=== PATIENT | female | born 1955 | race Caucasian/White ===

== ENCOUNTER 2016-07-23 07:28 | Emergency (ER) | payer OTHER ==
[2016-07-23 07:36] VITALS: BP 129/72; PULSE 103; TEMP 97.9
--- NOTE | 2016-07-23 07:36 | EDPHY ---
H & P Stated Complaint: facial and lip swellingx 2 days/has tried new face cream neulift HPI/ROS: CHIEF COMPLAINT: Lip swelling. HISTORY OF PRESENT ILLNESS: The patient is a 61-year-old female who presents with lip swelling, worse on the right than the left, that began two days ago. She reports trying a new skin cream on her face one week ago but denies other changes in cosmetics or medications. Cream contains a type of collagen. She denies shortness of breath, difficulty swallowing, tongue swelling, or other complaints. She admits a history of similar symptoms in December that were milder. Sore primary care physician yesterday who recommended Zyrtec. She took Zyrtec yesterday for the swelling to no effect. No fever, chills, chest pain, palpitations, vomiting, diarrhea, urinary complaints, headache, lightheadedness. REVIEW OF SYSTEMS: Aside from elements discussed in the HPI, a comprehensive 10-point review of systems was reviewed and is negative. PAST MEDICAL HISTORY: Denies. On no MAGALY inhibitors. No known drug allergies. SOCIAL HISTORY: Does not abuse alcohol or drugs. VITAL SIGNS: Reviewed by me GENERAL: Well-developed, well-nourished, resting comfortably in no respiratory distress. No wheezing or stridor. Looks well. HEENT: Atraumatic. Eyes: No icterus, no injection. Mouth: moist mucous membranes. No erythema or lesions. Angioedema around lips. No angioedema of the uvula. Crusty najera discharge on bottom lip. Neck: supple with no adenopathy. LUNGS: Clear to auscultation bilaterally, no wheezes, rhonchi or rales. No stridor. CARDIAC: Regular rate and rhythm, no rubs, murmurs or gallops. EXTREMITIES: No trauma. No edema. Range of motion is normal throughout. NEURO: Alert and oriented, grossly nonfocal. SKIN: Warm and dry, no rash. PSYCHIATRIC: Normal mentation, no agitation. Portions of this note were transcribed by a medical facilities section director. I personally performed a history, physical exam, medical decision making, and confirmed accuracy of information the transcribed note. Source: Patient Exam Limitations: No limitations - Personal History Current Tetanus/Diphtheria Vaccine: Yes - Medical/Surgical History Hx Asthma: No Hx Chronic Respiratory Disease: No Hx Diabetes: No Hx Cardiac Disease: No Hx Renal Disease: No Hx Cirrhosis: No Hx Alcoholism: No Hx HIV/AIDS: No Hx Splenectomy or Spleen Trauma: No Other PMH: denies - Social History Smoking Status: Never smoked Constitutional: Initial Vital Signs Temperature (C) 36.6 C 07/23/16 07:33 Heart Rate 103 H 07/23/16 07:33 Respiratory Rate 20 07/23/16 07:33 Blood Pressure 129/72 H 07/23/16 07:33 O2 Sat (%) 7 L 07/23/16 07:33 O2 Delivery Mode Room Air Allergies/Adverse Reactions: No Known Allergies Allergy (Unverified 07/23/16 07:33) Home Medications: Medication Instructions Recorded Valtrex 07/23/16 predniSONE 40 mg PO DAILY 2 Days 07/23/16 Medical Decision Making ED Course/Re-evaluation: 61-year-old female presents with swelling around her lips that began two days ago. On exam she has no swelling around her eyes, to her tongue, or to her throat. She has a small amount of crusty discharge to the lower lip, to sewing the vermilion border, which may represent very early staph infection. I have recommended she use antihistamines and topical antibiotic to use around her lips. I will prescribe her a 2 day course of 40mg oral Prednisone for the swelling and she has been given an additional dose in the ED today. She is comfortable with the plan. Differential Diagnosis: Differential diagnoses for the patient's symptom complex was considered including but not limited to allergic reaction, contact dermatitis, urticaria, anaphylaxis, hereditary angioedema, drug-induced reaction. - Data Points Medications Given: Discontinued Medications Prednisone (Prednisone) 40 mg PO EDNOW ONE Stop: 07/23/16 07:56 Last Admin: 07/23/16 08:00 Dose: 40 mg Departure - Departure Disposition: Home, Routine, Self-Care Clinical Impression: Angioedema Qualifiers: Encounter type: initial encounter Qualified Code(s): T78.3XXA - Angioneurotic edema, initial encounter Condition: Good Instructions: Angioedema (ED), General Allergic Reaction (ED) Additional Instructions: Discontinue use of the skin cream you were using. Take Zyrtec during the day and Benadryl at night for the swelling. Dose of Benadryl is 25-50mg. Take Prednisone as prescribed. Use a small amount of antibiotic cream where your lips are chapped. Ice the affected area for swelling. Heat will make the swelling appear worse. Follow up with your PCP for reevaluation. Return if the swelling worsens, spreads, you develop a fever, or for any other serious worsening of condition. Referrals: Radha Suresh MD [Primary Care Provider] - As per Instructions Prescriptions: predniSONE 40 mg PO DAILY 2 Days Report Scribed for: Lily Espinoza Report Scribed by: Ranjit Dempsey Date of Report: 07/23/16 Time of Report: 07:39
[2016-07-23] MEDS ORDERED: predniSONE 20 MG TAB PO ONE (07:55)
[2016-07-23 08:08] VITALS: RESP 18; O2SAT 96
== END 2016-07-23 08:08 | disposition home or self-care (01) ==
DX: T78.3XXA Angioneurotic edema, initial encounter (principal)

== ENCOUNTER → 2016-11-26 | Outpatient (CLI) | payer OTHER | LOC: FIMAGING 15:51 | DX: Z12.31 Encounter for screening mammogram for malignant neoplasm of breast (principal) | CPT/HCPCS: G0202 ==

== ENCOUNTER → 2018-01-06 | Outpatient (CLI) | payer OTHER | LOC: FIMAGING 14:43 | PROVIDERS: ATTEND Obstetrics & Gynecology Gynecology | DX: Z12.31 Encounter for screening mammogram for malignant neoplasm of breast (principal) ==